=== PATIENT | female | born 1960 | race Caucasian/White ===

== ENCOUNTER 2017-06-20 21:58 | Emergency (ER) | payer MEDICAID ==
[~2017-06-20] VITALS: Ht 167.6 cm; Wt 90.7 kg
[~2017-06-20 21:58] MED LIST: ACTICIN 5% CREA60 G1 TOP; ACYCLOVIR 400400 MG PO; ADVAIR 250-501 EACH IH; ADVAIR HFA 230M12 GM INH; AMLODIPINE BESY10 MG PO; AMOXICILLIN500 M1 PO; ASPIRIN325 PO; ATACAND8 MG PO; BACITRACIN15 GM; BUSPIRONE HCL10 MG PO; CELEXA 20 MG TA20 M1; CELEXA 20 MG TA20 MG PO; CIPRO500 MG PO; CIPROFLOXIN HC2.5 M1 OPHTHALMIC; CLEOCIN HCL150 MG PO; COLACE100 MG PO; DIFLUCAN150 M1 PO; DIFLUCAN150 MG PO; DIFLUCAN200 MG PO; DOXYCYCLINE 10100 M1 PO; DOXYCYCLINE 10100 MG PO; ENEMA BAG1 EAC1 RC; FLAGYL500 MG PO; FLOVENT HFA 2220 MC1; FLUCONAZOLE150 MG PO; HYDROCHLOROTH12.5 MG PO; HYDROCODONE-AP1 EAC6 PO; HYDROCODONE-APA1 TA1 PO; HYDROCORTISONE30 G9 TOP; KEFLEX500 MG PO; LISINOPRIL20 MG; LORTAB 5 MG/5001 TA1 PO; MEDROLDOSEPACK PO; MONISTAT 324 GM VG; NORCO 5-325 TA1 EACH PO; NYSTATIN15 GM TP; PREDNISONE 10 M10 MG PO; PREDNISONE 20 M20 M1 PO; PREDNISONE 20 M20 MG PO; PREDNISONE50 MG PO; PRILOSEC 20 MG20 MG PO; PROAIR HFA8.5 GM IH; PROTONIX40 M1 PO; PROTONIX40 M2; PROTONIX40 M2 PO; PYRIDIUM100 M1 PO; SINGULAIR 10 MG10 M1; SPIRIVA INH; SYMBICORT160 MCG/4. INH; TRIAMTERENE-HC1 EAC1; VENTOLIN17 GM INH; VISTARIL 25 MG25 M1 PO; ZANTAC 150MG T150 MG PO
[2017-06-20 22:33] LABS: URINE BILIRUBIN NEGATIVE (Negative); URINE BLOOD NEGATIVE (Negative); URINE CLARITY CLEAR; URINE COLOR YELLOW; URINE GLUCOSE-RANDOM NEGATIVE (Negative); URINE KETONES NEGATIVE (Negative); URINE LEUKOCYTES-REFLEX NEGATIVE (Negative); URINE NITRITE-REFLEX NEGATIVE (Negative); URINE PROTEIN NEGATIVE (Negative); URINE UROBILINOGEN 0.2 E.U./dl (0.2-1.0)
[2017-06-20 23:00] LABS: ABSOLUTE BASOPHILS 0.1 thou/uL (0.0-0.2); ABSOLUTE EOSINOPHILS 0.2 thou/uL (0.0-0.7); ABSOLUTE LYMPHOCYTES 2.7 thou/uL (0.8-5.3); ABSOLUTE MONOCYTES 0.8 thou/uL (0.0-1.2); ABSOLUTE NEUTROPHILS 6.1 thou/uL (1.6-8.1); BASOPHILS 1.2 %; EOSINOPHILS 2.1 %; HEMATOCRIT 42.8 % (37.0-47.0); HEMOGLOBIN 13.9 gm/dL (12.0-15.0); LYMPHOCYTES 27.3 %; MCH 28.2 pg (26.0-34.0); MCHC 32.5 g/dL (28.0-37.0); MCV 86.8 fL (80.0-100.0); MPV 8.1 fl. (7.2-11.1); NUCLEATED RBCS 0 /100WBC; PLATELET COUNT* 276 thou/uL (150-400); POLYS 61.4 %; RBC 4.93 mil/uL (4.20-5.00); RDW-CV 15.1 % (10.5-14.5); WBC 9.9 thou/uL (4.0-11.0)
[2017-06-20 23:04] LABS: CALCIUM 8.4 mg/dL (8.5-10.1); POTASSIUM 4.4 mmol/L (3.5-5.1)
[2017-06-20] MEDS ORDERED: PREDNISONE 20 M20 M1 PO (23:04)
[2017-06-20 23:08] LABS: ALBUMIN 3.2 g/dL (3.4-5.0); TOTAL BILIRUBIN 0.2 mg/dL (<0.1-1.0)
[2017-06-20 23:11] VITALS: BP 172/98
== END 2017-06-20 23:12 | disposition home or self-care (01) ==
LOC: M.ERS 21:58
PROVIDERS: Personal Emergency Response Attendant
DX: L29.9 Pruritus, unspecified (principal); I10 Essential (primary) hypertension; J44.9 Chronic obstructive pulmonary disease, unspecified; M19.90 Unspecified osteoarthritis, unspecified site; F17.210 Nicotine dependence, cigarettes, uncomplicated; Z90.89 Acquired absence of other organs; Z90.49 Acquired absence of other specified parts of digestive tract; Z90.710 Acquired absence of both cervix and uterus; Z87.440 Personal history of urinary (tract) infections; Z88.1 Allergy status to other antibiotic agents; Z88.5 Allergy status to narcotic agent; Z91.041 Radiographic dye allergy status; Z88.2 Allergy status to sulfonamides; Z88.8 Allergy status to other drugs, medicaments and biological substances

== ENCOUNTER 2017-10-31 20:52 | Emergency (ER) | payer MEDICAID ==
[~2017-10-31] VITALS: Ht 170.2 cm; Wt 93.0 kg
[2017-10-31] MEDS ORDERED: PEPCID20 MG (21:14)
[2017-10-31] MEDS ORDERED: AUGMENTIN 875-1 EACH PO (21:34)
[2017-10-31] MEDS ORDERED: PREDNISONE 20 M20 MG PO (21:34)
[2017-10-31] MEDS ORDERED: DIFLUCAN150 MG PO (21:45)
[2017-10-31 21:47] VITALS: BP 135/70
== END 2017-10-31 21:47 | disposition home or self-care (01) ==
LOC: M.ERS 20:52
DX: J01.00 Acute maxillary sinusitis, unspecified (principal); I10 Essential (primary) hypertension; J44.9 Chronic obstructive pulmonary disease, unspecified; M19.90 Unspecified osteoarthritis, unspecified site; F17.210 Nicotine dependence, cigarettes, uncomplicated; Z90.49 Acquired absence of other specified parts of digestive tract; Z90.710 Acquired absence of both cervix and uterus; Z88.1 Allergy status to other antibiotic agents; Z88.5 Allergy status to narcotic agent; Z91.041 Radiographic dye allergy status; Z88.8 Allergy status to other drugs, medicaments and biological substances

== ENCOUNTER 2020-06-08 20:10 | Emergency (ER) | payer MEDICAID ==
[~2020-06-08] VITALS: Ht 167.6 cm; Wt 96.6 kg
[~2020-06-08 20:10] MED LIST changes: +AUGMENTIN 875-1 EACH PO; +PEPCID20 MG
[2020-06-08 20:57] LABS: ABSOLUTE BASOPHILS 0.1 thou/uL (0.0-0.2); ABSOLUTE EOSINOPHILS 0.2 thou/uL (0.0-0.7); ABSOLUTE LYMPHOCYTES 2.5 thou/uL (0.8-5.3); ABSOLUTE MONOCYTES 0.9 thou/uL (0.0-1.2); ABSOLUTE NEUTROPHILS 7.4 thou/uL (1.6-8.1); WBC 11.1 thou/uL (4.0-11.0)
[2020-06-08 20:58] LABS: EOSINOPHILS 1.8 %; HEMATOCRIT 44.4 % (37.0-47.0); HEMOGLOBIN 14.5 gm/dL (12.0-15.0); LYMPHOCYTES 22.1 %; MCH 28.1 pg (26.0-34.0); MCHC 32.7 g/dL (28.0-37.0); MONOCYTES 8.5 %; MPV 7.6 fl. (7.2-11.1); NUCLEATED RBCS 0 /100WBC; PLATELET COUNT* 268 thou/uL (150-400); POLYS 66.6 %; RBC 5.16 mil/uL (4.20-5.00); RDW-CV 15.2 % (10.5-14.5)
[2020-06-08 21:05] LABS: CALCIUM 8.3 mg/dL (8.5-10.1); POTASSIUM 4.3 mmol/L (3.5-5.1)
[2020-06-08] MEDS ORDERED: TRIAMCINOLONE A80 G2 TOP (21:54)
[2020-06-08] MEDS ORDERED: CLEOCIN HCL300 MG PO (21:54)
[2020-06-08] MEDS ORDERED: PERCOCET 5-3251 EACH PO (21:56)
[2020-06-08 22:03] VITALS: BP 160/70
== END 2020-06-08 22:04 | disposition home or self-care (01) ==
LOC: M.ERS 20:10
PROVIDERS: Emergency Medicine
DX: L30.9 Dermatitis, unspecified (principal); I10 Essential (primary) hypertension; J44.9 Chronic obstructive pulmonary disease, unspecified; F17.210 Nicotine dependence, cigarettes, uncomplicated; Z90.49 Acquired absence of other specified parts of digestive tract; Z90.710 Acquired absence of both cervix and uterus; Z79.899 Other long term (current) drug therapy; Z88.1 Allergy status to other antibiotic agents; Z88.5 Allergy status to narcotic agent; Z88.8 Allergy status to other drugs, medicaments and biological substances; Z91.041 Radiographic dye allergy status

== ENCOUNTER 2020-06-16 16:18 | Emergency (ER) | payer MEDICAID ==
[~2020-06-16] VITALS: Ht 167.6 cm; Wt 95.7 kg
[~2020-06-16 16:18] MED LIST changes: +CLEOCIN HCL300 MG PO; +PERCOCET 5-3251 EACH PO; +TRIAMCINOLONE A80 G2 TOP
[2020-06-16] MEDS ORDERED: LANTUS SUBQ (16:25)
[2020-06-16 17:40] LABS: ABSOLUTE EOSINOPHILS 0.2 thou/uL (0.0-0.7); ABSOLUTE MONOCYTES 0.8 thou/uL (0.0-1.2); ABSOLUTE NEUTROPHILS 6.2 thou/uL (1.6-8.1); BASOPHILS 0.2 %; EOSINOPHILS 1.7 %; HEMATOCRIT 45.4 % (37.0-47.0); HEMOGLOBIN 14.8 gm/dL (12.0-15.0); LYMPHOCYTES 21.7 %; MCH 27.8 pg (26.0-34.0); MCHC 32.6 g/dL (28.0-37.0); MONOCYTES 8.4 %; MPV 7.8 fl. (7.2-11.1); NUCLEATED RBCS 0 /100WBC; PLATELET COUNT* 254 thou/uL (150-400); RBC 5.33 mil/uL (4.20-5.00); WBC 9.2 thou/uL (4.0-11.0)
[2020-06-16 17:45] LABS: CREATININE 0.8 mg/dL (0.6-1.3); POTASSIUM 4.2 mmol/L (3.5-5.1)
[2020-06-16] MEDS ORDERED: VISTARIL 25 MG25 M1 PO (18:07)
[2020-06-16] MEDS ORDERED: DOXYCYCLINE 10100 M2 PO (18:07)
[2020-06-16 18:24] VITALS: BP 128/72
== END 2020-06-16 18:25 | disposition home or self-care (01) ==
LOC: M.ERS 16:18
PROVIDERS: Nurse Practitioner Psychiatric/Mental Health
DX: L70.8 Other acne (principal); T38.0X5A Adverse effect of glucocorticoids and synthetic analogues, initial encounter; I10 Essential (primary) hypertension; J44.9 Chronic obstructive pulmonary disease, unspecified; F17.210 Nicotine dependence, cigarettes, uncomplicated; Z90.49 Acquired absence of other specified parts of digestive tract; Z90.710 Acquired absence of both cervix and uterus; Z79.899 Other long term (current) drug therapy; Z88.1 Allergy status to other antibiotic agents; Z88.2 Allergy status to sulfonamides; Z88.5 Allergy status to narcotic agent; Z88.8 Allergy status to other drugs, medicaments and biological substances; Z91.041 Radiographic dye allergy status; Y92.89 Other specified places as the place of occurrence of the external cause

== ENCOUNTER 2021-03-13 14:16 | Emergency (ER) | payer MEDICAID ==
[~2021-03-13] VITALS: Ht 167.6 cm; Wt 92.5 kg
[~2021-03-13 14:16] MED LIST changes: +DOXYCYCLINE 10100 M2 PO; +LANTUS SUBQ
[2021-03-13] MEDS ORDERED: PREDNISONE 20 M20 M1 PO ×2 (14:52→15:47)
[2021-03-13] MEDS ORDERED: DOXYCYCLINE 10100 MG PO ×2 (14:52→15:47)
[2021-03-13] MEDS ORDERED: DIFLUCAN150 MG PO (14:52)
[2021-03-13] MEDS ORDERED: MELOXICAM15 MG PO (15:01)
[2021-03-13] MEDS ORDERED: ZYRTEC 10 MG TA10 MG PO (15:01)
[2021-03-13] MEDS ORDERED: ESCITALOPRA5 MG/5 ML PO (15:01)
[2021-03-13] MEDS ORDERED: PROAIR HFA8.5 GM INH (15:02)
[2021-03-13 15:30] VITALS: BP 118/65
== END 2021-03-13 15:34 | disposition home or self-care (01) ==
LOC: M.ERS 14:16
DX: J44.1 Chronic obstructive pulmonary disease with (acute) exacerbation (principal); L73.9 Follicular disorder, unspecified; I10 Essential (primary) hypertension; M19.90 Unspecified osteoarthritis, unspecified site; F17.210 Nicotine dependence, cigarettes, uncomplicated; Z90.49 Acquired absence of other specified parts of digestive tract; Z90.710 Acquired absence of both cervix and uterus; Z88.1 Allergy status to other antibiotic agents; Z88.5 Allergy status to narcotic agent; Z88.6 Allergy status to analgesic agent; Z88.2 Allergy status to sulfonamides; Z88.8 Allergy status to other drugs, medicaments and biological substances; Z91.041 Radiographic dye allergy status; Z79.4 Long term (current) use of insulin; Z79.51 Long term (current) use of inhaled steroids; Z79.1 Long term (current) use of non-steroidal anti-inflammatories (NSAID); Z79.899 Other long term (current) drug therapy